=== PATIENT | female | born 1970 ===

== ENCOUNTER 2017-10-09 08:08 | Emergency (ER) | payer SELFPAY ==
[2017-10-09 08:09] VITALS: BMI 30.9
[2017-10-09 08:24] VITALS: BP 112/74; PULSE 55; RESP 18; TEMP 98.9; O2SAT 96
--- NOTE | 2017-10-09 09:21 | RAD ---
PROCEDURE: Left Knee Radiographs. HISTORY: Pain. COMPARISON: None. FINDINGS: BONES: Bone alignment and mineralization are normal. There is no acute displaced fracture or bone destruction. JOINTS: There is mild tricompartmental degenerative osteoarthrosis with mild reduced joint spaces, marginal spurring in tibial spiking, worse in the medial compartment. JOINT EFFUSION: There is a small suprapatellar joint effusion. OTHER FINDINGS: None. IMPRESSION: Mild tricompartmental degenerative osteoarthrosis, worse in the medial compartment. Small suprapatellar joint effusion.
--- NOTE | 2017-10-09 09:29 | C.PDOC ---
History Of Present Illness 47 year old female presents to the ER complaining of left lateral knee pain since yesterday. No trauma but patient reports she was walking in the snow. Took Motrin with minimal relief. Now complains of having a hard time bearing weight on the left. No fever, chills, numbness, or tingling. Time Seen by Provider: 10/09/17 08:36 Chief Complaint (Nursing): Lower Extremity Problem/Injury History Per: Patient History/Exam Limitations: no limitations Onset/Duration Of Symptoms: Days (x2) Current Symptoms Are (Timing): Still Present Past Medical History Reviewed: Historical Data, Nursing Documentation, Vital Signs Vital Signs: Last Vital Signs Temp 98.9 F 10/09/17 08:15 Pulse 55 L 10/09/17 08:15 Resp 18 10/09/17 08:15 BP 112/74 10/09/17 08:15 Pulse Ox 96 10/09/17 10:10 - Medical History PMH: Anemia (IRON DEFICIENCY ANEMIA) Denies: Colonic Polyps, Fractures Surgical History: Endoscopy Family History: States: No Known Family Hx - Social History Hx Tobacco Use: No Hx Alcohol Use: No Hx Substance Use: No - Immunization History Hx Tetanus Toxoid Vaccination: No Hx Influenza Vaccination: No Hx Pneumococcal Vaccination: No Review Of Systems Constitutional: Negative for: Fever, Chills Musculoskeletal: Positive for: Leg Pain (left knee) Neurological: Negative for: Numbness (and tingling) Physical Exam - Physical Exam Appears: No Acute Distress Skin: Normal Color, No Rash Extremity: No Pedal Edema, No Calf Tenderness, No Deformity, Swelling (swollen appearing left knee, tender along lateral aspect. ROM limited secondary to pain. Good pulses) Pulses: Left Dorsalis Pedis: Normal Neurological/Psych: Oriented x3, Normal Speech, Normal Motor, Normal Sensation ED Course And Treatment O2 Sat by Pulse Oximetry: 96 (RA) Pulse Ox Interpretation: Normal - Other Rad left knee x-ray X-Ray: Viewed By Me, Read By Radiologist Interpretation: FINDINGS: BONES: Bone alignment and mineralization are normal. There is no acute displaced fracture or bone destruction. JOINTS: There is mild tricompartmental degenerative osteoarthrosis with mild reduced joint spaces, marginal spurring in tibial spiking, worse in the medial compartment. JOINT EFFUSION: There is a small suprapatellar joint effusion. OTHER FINDINGS: None. IMPRESSION: Mild tricompartmental degenerative osteoarthrosis, worse in the medial compartment. Small suprapatellar joint effusion. Medical Decision Making Medical Decision Making: Time: 8:46 Initial Plan: * x-ray left knee Knee immobilizer placed. tylenol given d/c home with ortho f/u Disposition Counseled Patient/Family Regarding: Studies Performed, Diagnosis, Need For Followup, Rx Given - Disposition Referrals: Camilo Brian MD [Staff Provider] - Disposition: HOME/ ROUTINE Disposition Time: 10:00 Condition: GOOD Additional Instructions: Please wear knee immobilizer for support and comfort. Take ibuprofen and tylenol for pain. Cold compresses several times a day to knee to help decrease swelling. Follow up with orthopedist. Prescriptions: Acetaminophen [Tylenol 325mg tab] 650 mg PO Q4 #50 tab Ibuprofen [Motrin] 600 mg PO TID #30 tab Instructions: Knee Pain (DC) Forms: General Discharge Instructions, [facility] (Wallisian), Work Excuse - Clinical Impression Clinical Impression: Left lateral knee pain - PA / [employer] / Resident Statement MD/DO has reviewed & agrees with the documentation as recorded. - Scribe Statement The provider has reviewed the documentation as recorded by the Scribe (Dana Beltre) All medical record entries made by the Scribe were at my direction and personally dictated by me. I have reviewed the chart and agree that the record accurately reflects my personal performance of the history, physical exam, medical decision making, and the department course for this patient. I have also personally directed, reviewed, and agree with the discharge instructions and disposition.
== END 2017-10-09 10:39 | disposition home or self-care (01) ==
LOC: C.ER 08:08
DX: M25.562 Pain in left knee (principal)